=== PATIENT | female | born 1980 | race Caucasian/White ===

== ENCOUNTER 2018-08-05 20:42 | Emergency (ER) | payer OTHER ==
[~2018-08-05] VITALS: Ht 160 cm; Wt 72.6 kg
[2018-08-05] MEDS ORDERED: ZANTAC150 M3 (20:53)
== END 2018-08-05 22:00 | disposition home or self-care (01) ==
LOC: ER 20:42
DX: S80.02XA Contusion of left knee, initial encounter (principal); W18.39XA Other fall on same level, initial encounter; Y93.89 Activity, other specified; Y92.832 Beach as the place of occurrence of the external cause; Y99.8 Other external cause status